=== PATIENT | male | born 1935 | race Caucasian/White ===

== ENCOUNTER 2018-11-17 14:19 | Outpatient (CLI) | payer MEDICARE, OTHER ==
[~2018-11-17 14:19] MED LIST: Iopamidol 370 76% 100 ML VIAL ONE
[2018-11-17 16:34] LABS: #Eosinphils 0.1 thou/uL (0.0-0.7); #Lymphocytes 1.5 thou/uL (1.20-3.40); #Monocytes 0.6 thou/uL (0.11-0.59); %Basophils 0.7 % (0.0-1.0); %Eosinophils 1.3 % (0.0-10.0); %Monocytes 10.9 % (0.0-10.0); %Neutrophils 58.1 % (42.0-75.0); Hemoglobin 16.3 g/dL (14.0-18.0); Mean Corpuscular HGB CONC 34.5 g/dL (32.0-36.0); Mean Corpuscular Hemoglobin 31.4 pg (27.0-31.0); Mean Corpuscular Volume 91.1 fL (78.0-98.0); Mean Platelet Volume 7.2 fL (7.4-10.4); Platelet Count 158 thou/uL (130-400); RBC Distribution Width 11.6 % (11.5-14.5); White Blood Cell (WBC) Count 5.1 thou/uL (4.8-10.8)
--- NOTE | 2018-11-17 17:01 | CT ---
ABDOMEN CT WITH CONTRAST PELVIC CT WITH CONTRAST 11/17/18 HISTORY: Diverticulitis. Feeling of bloating. Known abdominal aortic aneurysm. COMPARISON: None. FINDINGS: ABDOMEN CT: Lung bases are clear. Normal heart size. The descending thoracic aorta and suprarenal abdominal aorta have an overall normal caliber. There is aneurysmal dilatation of the infrarenal abdominal aorta wit h eccentric thrombus. At this level, the aorta measures 5.0 x 4.4 cm. No periaortic fat stranding. Sy mmetric attenuation of the psoas muscles. Gallbladder is surgically absent. Patent portal vein. Hypoattenuation of the liver due to hepatic steatosis. The spleen, pancreas and adrenal glands have a ppropriate enhancement. There is atrophy of the pancreas. No gastrohepatic, retrocrural or periportal lymphadenopathy. Symmetric enhancement of the kidneys. Bilaterally, no obstructive uropathy. Subcentimeter hypodensiti es in the right renal cortex are likely cysts. No mesenteric mass, lymphadenopathy, free air or free fluid. Gastric mucosa, duodenum and multiple no rmal caliber small bowel loops are identified. Ileocecal junction is normal. Abnormal hypoattenuation of the cecal apex without inflammation. Direct visualization with nonemergent colonoscopy is recomme nded. There is no evidence of colon obstruction. There is no evidence of inflammation. There is occas ional diverticulum of the left hemicolon. No diverticulitis. CT PELVIS: No mass, lymphadenopathy, free air or free fluid. IMPRESSION: 1. No evidence of acute abnormality in the abdomen or pelvis. 2. Diverticulosis in the left hemicolon. No evidence of diverticulitis. 3. Increased soft tissue density at the cecal apex. Nonemergent colonoscopy for direct visualiza tion is recommended. 4. Infrarenal abdominal aortic aneurysm as detailed above. No evidence of periaortic fat strandi ng to suggest dissection. Code T POS: [facility]
[2018-11-17 17:48] LABS: ALT (SGPT) 26 U/L (8-55); AST (SGOT) 24 U/L (5-34); Albumin 4.1 g/dL (3.4-4.8); Alkaline Phosphatase 38 U/L (40-150); Anion Gap 14 mmol/L (10-20); BUN (Urea Nitrogen) 18 mg/dL (8.4-25.7); Bilirubin, Total 1.5 mg/dL (0.2-1.2); Calc. Creatinine Clearance 0 mL/min (70-130); Calcium 8.7 mg/dL (7.8-10.44); Carbon Dioxide 22 mmol/L (23-31); Chloride 102 mmol/L (98-107); Estimated GFR-MDRD 79; Globulin 2.7 g/dL (2.4-3.5); Glucose 76 mg/dL (83-110); Potassium 3.5 mmol/L (3.5-5.1); Protein, Total 6.8 g/dL (5.8-8.1); Sodium 134 mmol/L (136-145)
== END 2018-11-17 14:20 | disposition home or self-care (01) ==
LOC: CT 14:19
PROVIDERS: ATTEND Physician Assistant Medical
DX: R10.32 Left lower quadrant pain (principal); R13.10 Dysphagia, unspecified; K57.30 Diverticulosis of large intestine without perforation or abscess without bleeding; K63.89 Other specified diseases of intestine; I71.4 Abdominal aortic aneurysm, without rupture
CPT/HCPCS: 74177; 80053; 82565; 85025; Q9967

== ENCOUNTER 2019-06-02 08:56 | Outpatient (CLI) | payer MEDICARE, OTHER ==
--- NOTE | 2019-06-02 10:25 | CT ---
EXAM: CTA Angio Abd Pelvis W WO Con PROVIDED CLINICAL HISTORY: Mid epigastric abdominal pain, abdominal bloating, and weight loss. History abdominal aortic aneurysm . COMPARISON: 11/17/2018 FINDINGS: Linear bibasilar densities are seen which may be related to mild scarring or atelectasis. Postcholecystectomy changes are noted. There is evidence of mild pneumobilia in the left hepatic lobe . In addition, there is a tiny amount of gas present in the region of the pancreatic duct at the level of the proximal body of the pancreas. The spleen, pancreas, bilateral adrenal glands, and kidneys demonstrate a normal CT appearance for ar terial phase of imaging. Ferreira of the urinary bladder do appear mildly thickened, but this may be related to incomplete distention. Vascular calcifications and atherosclerotic plaque is again seen in the abdominal aorta and involving the iliac arteries. An infrarenal abdominal aortic aneurysm is again seen with eccentric mural thrombus again present. The aneurysm diameter is approximately 4.6 cm and is unchanged in size or arielle earance compared to the prior exam. The abdominal aorta at the level of the renal arteries measures 2.5 cm x 1.6 cm. The aneurysm begins approximately 3.4 cm distal to the lowest left renal artery. The aneurysm does not involve the aortic bifurcation. There is ectasia of the right common iliac artery. Iliac arteries are otherwise patent. The partially opacified common femoral arteries are iniguez nt. The celiac artery is patent. There is mild eccentric atherosclerotic plaque involving the proximal gomez perior mesenteric artery with mild narrowing involving the proximal superior mesenteric artery. The origin of the LINDA originates from the most proximal aspect of the aneurysm, but the origin is obscure d due to vascular calcifications. No free fluid, fluid collection, or lymphadenopathy is seen in the abdomen or pelvis. A small amount retained fecal material seen in the colon. Extensive degenerative changes as well as postoperative changes are seen involving the visualized low er thoracic and lumbar spine. There is left convex scoliosis of the lumbar spine. There is bilateral hip osteoarthritis again present. IMPRESSION: 1. Mild narrowing involving the proximal superior mesenteric artery. The celiac artery is patent. The origin of the LINDA is not visualized due to dense vascular calcifications in the wall of the abdominal aorta but is otherwise patent. 2. Stable infrarenal abdominal aortic aneurysm with diameter of 4.6 cm and eccentric mural thrombus s een. 3. Postcholecystectomy changes with evidence of minimal pneumobilia and tiny amount of gas seen withi n the pancreatic duct. 4. Prominent degenerative changes involving the spine with postoperative changes of the lumbar spine.
== END 2019-06-02 08:57 | disposition home or self-care (01) ==
LOC: BICCT 08:56
PROVIDERS: ATTEND Physician Assistant Medical
DX: R10.13 Epigastric pain (principal); R14.0 Abdominal distension (gaseous); R63.4 Abnormal weight loss; K55.1 Chronic vascular disorders of intestine; I71.4 Abdominal aortic aneurysm, without rupture; M47.816 Spondylosis without myelopathy or radiculopathy, lumbar region; Z90.49 Acquired absence of other specified parts of digestive tract; Z98.890 Other specified postprocedural states
CPT/HCPCS: 74174; 82565

== ENCOUNTER 2022-05-22 12:21 | Outpatient (CLI) | payer MEDICARE, OTHER | END 2022-05-22 12:22 | disposition home or self-care (01) | LOC: LABBT 12:21 | PROVIDERS: ATTEND Anesthesiology Pain Medicine | DX: Z20.822 Contact with and (suspected) exposure to COVID-19 (principal) | CPT/HCPCS: 87811 ==

== ENCOUNTER 2022-05-27 07:05 | Day surgery (SDC) | payer MEDICARE, OTHER ==
[2022-05-21 14:09] VITALS: BMI 27.5
[~2022-05-27 07:05] MED LIST changes: -Iopamidol 370 76% 100 ML VIAL ONE; +Midazolam HCl 2 mg/2 ml Vial ONE; +Propofol 1,000 MG/100 ML VIAL IV ONE; +fentaNYL Citrate/PF 100 MCG/2 ML SYRINGE ONE
[2022-05-27] MEDS ORDERED: Midazolam HCl 2 mg/2 ml Vial ONE (07:51)
[2022-05-27] MEDS ORDERED: fentaNYL Citrate/PF 100 MCG/2 ML SYRINGE ONE (07:52)
[2022-05-27] MEDS ORDERED: Propofol 1,000 MG/100 ML VIAL IV ONE (07:52)
[2022-05-27] MEDS ORDERED: Bupivacaine PF 0.5% 30 ML VIAL ONE (10:00)
[2022-05-27] MEDS ORDERED: CEFAZOLIN 1 GM VIAL ONE (10:08)
[2022-05-27] MEDS ORDERED: Sodium Chloride 0.9% 100 ML ONE (10:09)
[2022-05-27] MEDS ORDERED: Ondansetron PF 4 MG/2 ML Vial ONE (10:31)
== END 2022-05-27 12:43 | disposition home or self-care (01) ==
LOC: SDC 07:05
PROVIDERS: ATTEND Anesthesiology Pain Medicine
PROC: 0JWT0MZ Revision of Stimulator Generator in Trunk Subcutaneous Tissue and Fascia, Open Approach (ICD-10-PCS; principal; 2022-05-27)
DX: T85.113A Breakdown (mechanical) of implanted electronic neurostimulator, generator, initial encounter (principal); M96.1 Postlaminectomy syndrome, not elsewhere classified; M54.16 Radiculopathy, lumbar region; K21.9 Gastro-esophageal reflux disease without esophagitis; M19.90 Unspecified osteoarthritis, unspecified site; I51.9 Heart disease, unspecified; M46.1 Sacroiliitis, not elsewhere classified; M70.61 Trochanteric bursitis, right hip; M48.062 Spinal stenosis, lumbar region with neurogenic claudication; Z87.891 Personal history of nicotine dependence; Z79.1 Long term (current) use of non-steroidal anti-inflammatories (NSAID); Z79.899 Other long term (current) drug therapy; Z91.018 Allergy to other foods; Z91.048 Other nonmedicinal substance allergy status; Z95.1 Presence of aortocoronary bypass graft
CPT/HCPCS: 72020; 76000; C1787; C1820; J0690; J2250; J2704; J3490; L8689; S0020